=== PATIENT | female | born 1935 | race Caucasian/White ===

== ENCOUNTER 2019-10-15 03:05 | Outpatient (CLI) | payer SELFPAY ==
[~2019-10-15 03:05] MED LIST: ESCI5TAB12 PO; LEVO100T9 PO; LISI-600 PO; MULT-342 PO; OMEP20CA15 PO
== END 2019-10-15 23:59 | disposition home or self-care (01) ==
LOC: HW VAS 03:05
DX: Z13.6 Encounter for screening for cardiovascular disorders (principal)

== ENCOUNTER → 2023-02-28 | Emergency (ER) | payer MEDICARE, MEDICAID ==
[~2023-02-28] VITALS: Ht 157.5 cm; Wt 51.2 kg
[~2023-02-28] MED LIST changes: +AMOX-580 PO; -ESCI5TAB12 PO; +ESCI5TAB17 PO; -LISI-600 PO; +LISI20TA28 PO; +TETanus/Pertussis (Acell)/Diphther VAC/PF (Tdap-Adult) 0.5ml syringe IMVAC ONE; +amox tr/potassium clavulanate 875/125mg TAB PO ONE
[2023-02-28 16:52] VITALS: TEMP 97.8
[2023-02-28 18:53] VITALS: BP 147/74; PULSE 58; RESP 16; O2SAT 98
== END | disposition home or self-care (01) ==
LOC: ER 16:38
DX: S60.572A Other superficial bite of hand of left hand, initial encounter (principal); W55.01XA Bitten by cat, initial encounter; Y93.89 Activity, other specified; Y92.89 Other specified places as the place of occurrence of the external cause; Y99.8 Other external cause status
CPT/HCPCS: 73080; 73110; 73130; 90471; 90715; 99284